=== PATIENT | male | born 1950 | race Caucasian/White ===

== ENCOUNTER 2018-12-19 18:40 | Outpatient (CLI) | payer MEDICARE, OTHER | END 2018-12-19 18:41 | disposition EMS.NT | LOC: EMS 18:40 | PROVIDERS: ATTEND Surgery | DX: R53.1 Weakness (principal) ==

== ENCOUNTER 2018-12-20 09:17 | Outpatient (CLI) | payer MEDICARE, OTHER | END 2018-12-20 09:18 | disposition short-term general hospital (02) | LOC: EMS 09:17 | PROVIDERS: ATTEND Surgery | DX: R53.1 Weakness (principal); R41.0 Disorientation, unspecified; R29.6 Repeated falls | CPT/HCPCS: A0425; A0427; A0888 ==